=== PATIENT | female | born 1955 | race Caucasian/White ===

== ENCOUNTER 2017-01-08 15:56 | Emergency (ER) | payer OTHER ==
[~2017-01-08] VITALS: Ht 152.4 cm; Wt 77.6 kg
--- NOTE | 2017-01-08 17:17 | RAD ---
EXAM: CT head without contrast HISTORY: PAIN BEHIND LEFT EAR X 11 DAYS. H/O PSEUDOTUMOR AT AGE 22. COMPARISON: None. TECHNIQUE: Computed tomographic images of the head were obtained without contrast. RS compliance statement: One or more of the following individualized dose reduction techniques were utilized for this examination: 1. Automated exposure control 2. Adjustment of the mA and/or kV according to patient size 3. Use of iterative reconstruction technique FINDINGS: There is no acute intracranial process identified. Specifically, there are no intracranial blood products, extra-axial fluid collections, mass effect or midline shift. Ventricles and basilar cisterns are maintained. The visualized portions of the orbits, paranasal sinuses and mastoid air cells are unremarkable. No suspicious calvarial lesion is seen. IMPRESSION: No acute intracranial findings. Electronically signed by: Tricia Mcpherson MD (01/08/2017 5:14 PM) [facility]
[2017-01-08 18:45] VITALS: BP 154/67
[2017-01-08] MEDS ORDERED: MELO7.5T5 PO (18:50)
[2017-01-08] MEDS ORDERED: TIZA4TAB PO (18:50)
--- NOTE | 2017-01-08 18:51 | PHYS DOC ---
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 Patient states that it seemed to start as a soreness in the left neck muscle, she indicates the left trapezius muscle. She thought she had an neck muscle soreness or strain. Then the pain has gone into the area behind her left ear. She describes it not so much as a headache but a head pain. Over this time, she has tried taking Excedrin, ibuprofen, and has taken a Percocet once or twice. Each time, these pain relievers improve the pain but then it comes back. She's also tried cyclobenzaprine 5 mg 3 times a day without relief. She also takes trazodone at night which she has continued. About 4 days ago she had some nausea and one episode of vomiting but that has not persisted. 2 days ago she felt that her vision was a little blurred in both eyes and she was a little dizzy. That may have been a medication side effect. Patient tells me that at the age of 22, she had pseudotumor cerebri. The headache she is having now is nowhere near that type of headache. She was in a study at the [facility], she had 6 spinal taps and was on Bumex for a while, apparently it went away, and she states since her pseudotumor resolved, "I've only ever had 2 headaches", today's complaint of 11 days of pain behind the left ear is nothing like the complaint that she had with that problem. Patient denies fever or chills. She has not had a stiff neck but just had pain on the left side of her neck over her left trapezius. She also notes that about 6 months ago she had left rotator cuff surgery and she has a bone protruding on the top of her left shoulder and that has been hurting, she had some physical therapy for that, she wonders if it may have all started related to that shoulder surgery and bone. Review of Systems Review of Systems Constitutional: Denies fever or chills [] Eyes: As in history of present illness, she had some blurred vision in both eyes on Sunday that sounds more like a dizziness type of symptom, currently her vision is normal. HENT: Denies nasal congestion or sore throat [] Respiratory: Denies cough or shortness of breath [] GI: As in history of present illness Musculoskeletal: Denies back pain or joint pain [] Integument: Denies rash or skin lesions [] Neurologic: As in history of present illness Allergies Allergies Allergies Coded Allergies Type Severity Reaction Last Updated Verified psyllium Allergy Severe Anaphylaxis 01/08/17 Yes fexofenadine Allergy Intermediate Hives 01/08/17 Yes hydrocodone Allergy Intermediate Rash 01/08/17 Yes Physical Exam Physical Exam Constitutional: Well developed, well nourished, no acute distress, non-toxic appearance. Alert, mentating normally, ambulatory HENT: Normocephalic, atraumatic, bilateral external ears normal, oropharynx moist, no oral exudates, dentition intact and normal in appearance, oral examination normal, Nose normal. Left ear externally normal, EAC normal, TMs normal. Behind the left ear there is tenderness to palpation but no mass, no lymphadenopathy, no overlying skin color change or skin abnormality. Tenderness to palpation over the occipital insertion of the trapezius, no visible or palpable abnormality or mass. Eyes: PERRLA, EOMI, conjunctiva normal, no discharge. funduscopic exam appears normal with normal disks bilaterally. Neck: Normal range of motion, no tenderness, supple, no stridor. No cervical muscle spasm or abnormality. Cardiovascular:Heart rate regular rhythm, no murmur [] Lungs & Thorax: Bilateral breath sounds clear to auscultation [] Skin: Warm, dry, no erythema, no rash. [] Extremities: No tenderness, no cyanosis, no clubbing, ROM intact, no edema. [] Neurologic: Alert and oriented X 3, normal motor function, normal sensory function, no focal deficits noted. [] Current Patient Data Vital Signs Vital Signs Date Time Temp Pulse Resp B/P (MAP) Pulse Ox O2 Delivery O2 Flow Rate FiO2 01/08/17 18:45 52 19 154/67 (96) 98 Room Air 01/08/17 16:21 97.9 97.9 EKG EKG [] Radiology/Procedures Radiology/Procedures CT of the head read by the radiologist. No acute findings. [] Course & Med Decision Making Course & Med Decision Making Pertinent Labs and Imaging studies reviewed. 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 The pain was not under clap in onset and has had no associated fever or chills or actual neck stiffness. I don't believe the patient has a subarachnoid hemorrhage and I don't believe she has meningitis. I have not found any reason to suspect a serious etiology of the pain. I discussed the case with Dr. Bowie, neurology on-call, who agrees with the above and he suggested a trial of a stronger anti-inflammatory such as Mobitz and a centrally acting muscle relaxer such as ties and edema. I discussed these with the patient and prescribed them. Patient is comfortable with the plan. She does have a primary care doctor for follow-up. See instructions for plan. [] Dragon Disclaimer Dragon Disclaimer This electronic medical record was generated, in whole or in part, using a voice recognition dictation system. Departure Departure Impression: Primary Impression: Pain in the head Additional Impression: Cervical muscle pain Disposition: 01 HOME, SELF-CARE Condition: STABLE Referrals: TAYLOR ANDINO MD (PCP) Additional Instructions: As we discussed, CT scan did not show any cause of your pain, which is reassuring. It sounds like your pain may be from neck muscle pain, where it inserts into the base of your skull. I discussed your case with Dr. Bowie, our neurologist, who recommended a trial of a stronger anti-inflammatory and a different muscle relaxer. I have ordered both of these for you. Also, follow-up with your primary care physician for possible referral to physical therapy. Scripts Tizanidine Hcl (TIZANIDINE HCL) 4 Mg Tablet 1 TAB PO TID for head/neck muscle pain, #30 TAB Prov: MICHEL OLIVA MD 01/08/17 Meloxicam (MOBIC) 7.5 Mg Tablet 1 TAB PO DAILY for head/neck pain, #30 TAB Prov: MICHEL OLIVA MD 01/08/17 Problem Qualifiers MICHEL OLIVA MD Jan 08, 2017 18:51
== END 2017-01-08 18:58 | disposition home or self-care (01) ==
LOC: ER 15:56
DX: R51 Headache (principal); M62.838 Other muscle spasm; M54.2 Cervicalgia; M25.512 Pain in left shoulder; H92.02 Otalgia, left ear; E03.9 Hypothyroidism, unspecified; I10 Essential (primary) hypertension; M19.90 Unspecified osteoarthritis, unspecified site; Z88.5 Allergy status to narcotic agent; Z88.8 Allergy status to other drugs, medicaments and biological substances
CPT/HCPCS: 70450; 99284-25

== ENCOUNTER → 2017-04-09 | Outpatient (CLI) | payer OTHER ==
[~2017-04-09] MED LIST: BUPR300T4 PO; CARV12.52 PO; DOCU-109 PO; GLUC1CAP41 PO; IBUP-1060 PO; LEVO75TA PO; MELO7.5T5 PO; MULT1TAB52 PO; TAMS0.4C2 PO; TIZA4TAB PO; TRAZ50TA15 PO
[2017-04-09 09:20] LABS: BASO # 0.1 x10^3/uL (0.0-0.2); BASO % 2 % (0-3); EOS % 12 % (0-3); HEMATOCRIT 40.8 % (36.0-47.0); HEMOGLOBIN 13.7 g/dL (12.0-15.5); LYMPH # 1.1 x10^3/uL (1.0-4.8); LYMPH % 23 % (24-48); MEAN CORPUSCULAR HEMOGLOBIN 31 pg (25-35); MEAN CORPUSCULAR HGB CONC 34 g/dL (31-37); MEAN CORPUSCULAR VOLUME 91 fL (79-100); MONO % 6 % (0-9); NEUT % 57 % (31-73); PLATELET COUNT 204 x10^3/uL (140-400); RED BLOOD COUNT 4.47 x10^6/uL (3.50-5.40); RED CELL DISTRIBUTION WIDTH 13.9 % (11.5-14.5); WHITE BLOOD COUNT 4.7 x10^3/uL (4.0-11.0)
[2017-04-09 09:23] LABS: BILIRUBIN,URINE NEGATIVE (NEG); GLUCOSE,URINE NEGATIVE (NEG); NITRITE,URINE NEGATIVE (NEG); PROTEIN,URINE NEGATIVE (NEG-TRACE); UROBILINOGEN,URINE 0.2 mg/dL (0.2 mg/dL)
[2017-04-09 09:35] LABS: INR 1.1 (0.8-1.1); PROTHROMBIN TIME PATIENT 13.1 SEC (11.7-14.0)
[2017-04-09 09:45] LABS: ALBUMIN 3.4 g/dL (3.4-5.0); CREATININE 0.9 mg/dL (0.6-1.0); GFR 63.9; POTASSIUM 4.1 mmol/L (3.5-5.1)
[2017-04-09 09:45] LABS: BACTERIA,URINE 0 /HPF (0-FEW); RBC,URINE 0 /HPF (0-2); WBC,URINE OCC /HPF (0-4)
--- NOTE | 2017-04-09 12:20 | EKG ---
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
--- NOTE | 2017-04-09 13:22 | RAD ---
EXAM: Chest 2 views. HISTORY: Preoperative risk factors. COMPARISON: 10/14/2009. FINDINGS: Frontal and lateral views of the chest are obtained. There are no confluent infiltrates. There is no pneumothorax or pleural effusion. The heart is not enlarged. There are atherosclerotic calcifications of the aorta. There are changes of right rotator cuff repair. IMPRESSION: 1. No confluent infiltrates.
== END | disposition home or self-care (01) ==
LOC: SURGPAT 12:54
PROVIDERS: ATTEND Orthopaedic Surgery
DX: Z01.818 Encounter for other preprocedural examination (principal); M17.0 Bilateral primary osteoarthritis of knee; I70.0 Atherosclerosis of aorta; R00.1 Bradycardia, unspecified; Z96.653 Presence of artificial knee joint, bilateral
CPT/HCPCS: 36415; 71020; 80048; 81001; 82040; 82306; 85025; 85610; 85651; 85730; 87641; 93005

== ENCOUNTER → 2017-07-03 | Day surgery (SDC) | payer OTHER ==
[~2017-07-03] MED LIST changes: -BUPR300T4 PO; -CARV12.52 PO; +DEXAMETHASONE SOD PHOS 20 MG/5 ML VIAL.; -DOCU-109 PO; -GLUC1CAP41 PO; -IBUP-1060 PO; +KETOROLAC 30 MG, ROPIVacaine 0.5% PF 60 ML, EPINEPHrine 0.5 MG in IV NORMAL SALINE 100M... INT ART; -LEVO75TA PO; +LIDOCAINE 1% PF 2 ML VIAL. ID; +LIDOCAINE 1% PF 5 ML VIAL.; -MELO7.5T5 PO; -MULT1TAB52 PO; +ONDANSETRON PF 4 MG/2 ML VIAL.; +ONDANSETRON PF 4 MG/2 ML VIAL. IV; +PROCHLORPERAZINE 10 MG/2 ML VIAL. IV; +PROPOFOL 20 ML IV; +SEVOFLURANE 31 TO 60 MINUTES. IH; -TAMS0.4C2 PO; -TIZA4TAB PO; -TRAZ50TA15 PO; +fentaNYL PF VIAL 100 MCG/2 ML VIAL; +fentaNYL PF VIAL 100 MCG/2 ML VIAL IV
[2017-07-03] MEDS: IV RINGERS,LACTATED 1000ML 1,000 ML IV ×2 (10:52)
[2017-07-03] MEDS: SCOPOLAMINE 1.5MG PATCH. TD ×2 (10:56)
[2017-07-03] MEDS: BUPIVACAINE-EPI 0.25%-1:200000 50 ML VIAL. ×2 (13:39)
[2017-07-03] MEDS: fentaNYL PF VIAL 100 MCG/2 ML VIAL IV ×4 (14:36→14:42)
[2017-07-03] MEDS: oxyCODONE/APAP 5/325 1 TAB TABLET PO ×2 (15:06)
== END | disposition home or self-care (01) ==
LOC: OPSVCIP 10:27 → SURG 10:27
DX: T81.30XA Disruption of wound, unspecified, initial encounter (principal); Y84.8 Other medical procedures as the cause of abnormal reaction of the patient, or of later complication, without mention of misadventure at the time of the procedure; Y92.89 Other specified places as the place of occurrence of the external cause; K21.9 Gastro-esophageal reflux disease without esophagitis; M19.90 Unspecified osteoarthritis, unspecified site; F32.9 Major depressive disorder, single episode, unspecified; F17.200 Nicotine dependence, unspecified, uncomplicated; E03.9 Hypothyroidism, unspecified; Z96.653 Presence of artificial knee joint, bilateral; Z86.69 Personal history of other diseases of the nervous system and sense organs; Z88.1 Allergy status to other antibiotic agents; Z88.8 Allergy status to other drugs, medicaments and biological substances; Z87.39 Personal history of other diseases of the musculoskeletal system and connective tissue; Z86.39 Personal history of other endocrine, nutritional and metabolic disease; Z72.89 Other problems related to lifestyle
CPT/HCPCS: 13160; 87071; 87075; 87102; 87116; 87205; J0171; J0690; J1100; J1885; J2405; J2704; J2795; J3010; J7030; J7120

== ENCOUNTER → 2019-11-24 | Outpatient (CLI) | payer OTHER ==
[2018-06-27 08:39] VITALS: BP 132/67
[~2019-11-24] MED LIST changes: +ASPI325T11 PO; +ASPI81TA50 PO; +BUPR300T92 PO; +CARV12.511 PO; +CEPH-264 PO; +CONTRAST GIVEN. MC PRN; -DEXAMETHASONE SOD PHOS 20 MG/5 ML VIAL.; +DOCU-109 PO; +GLUC1CAP41 PO; +IBUP-1060 PO; +IOHEXOL 240 MG/ML 50ML VIAL. PO ONE; +IOHEXOL 300 MG/ML 100ML VIAL. IV ONE; -KETOROLAC 30 MG, ROPIVacaine 0.5% PF 60 ML, EPINEPHrine 0.5 MG in IV NORMAL SALINE 100M... INT ART; +LEVO125T PO; +LEVO75TA90 PO; -LIDOCAINE 1% PF 2 ML VIAL. ID; -LIDOCAINE 1% PF 5 ML VIAL.; +MELO7.5T5 PO; +MULT-445 PO; -ONDANSETRON PF 4 MG/2 ML VIAL.; -ONDANSETRON PF 4 MG/2 ML VIAL. IV; +OXYC1TAB19 PO; -PROCHLORPERAZINE 10 MG/2 ML VIAL. IV; -PROPOFOL 20 ML IV; -SEVOFLURANE 31 TO 60 MINUTES. IH; +TAMS0.4C2 PO; +TIZA4TAB2 PO; +TOLT4CAP PO; +TRAZ-118 PO; -fentaNYL PF VIAL 100 MCG/2 ML VIAL; -fentaNYL PF VIAL 100 MCG/2 ML VIAL IV
--- NOTE | 2019-11-24 09:27 | RAD ---
CT abdomen and pelvis with contrast History: Ventral hernia Technique: After the administration of intravenous contrast, CT imaging was performed of the abdomen and pelvis. Oral contrast was also given. Multiplanar images are reviewed. Exposure: One or more of the following individualized dose reduction techniques were utilized for this examination: 1. Automated exposure control 2. Adjustment of the mA and/or kV according to patient size 3. Use of iterative reconstruction technique. Comparison: None Findings: There is some linear atelectasis or fibrotic change of the left lower lobe near the base. No focal abnormality is identified of the liver, spleen, or pancreas. Gallbladder is present without obvious intraluminal abnormality by CT. Both kidneys enhance, no hydronephrosis. There is no adrenal nodularity. There is scattered mild calcified plaque of the normal caliber abdominal aorta. There is no bowel containing hernia. Bowel is not dilated. There is no intra-abdominal or intrapelvic free fluid. There is no free air. There is some scattered retained stool in the colon. There is advanced degenerative disc disease at L5-S1. There is multilevel lumbar facet degenerative change. There is large fluid collection with internal density measurements about 12 Hounsfield units located superficial to the fascia in the soft tissues of the abdomen and pelvis more eccentric to the left. This measures about 24 cm transverse by 3.9 cm AP by about 15.7 cm CC. This is associated with some variable very thin enhancement of the jones. Impression: 1. There is a large fluid collection with internal density measurements suggestive of simple fluid located superficial to the fascia in the abdomen and pelvis more eccentric to the left. While sterility is uncertain, there is only very minimal variable thin enhancement of the jones, overall features suggestive of a large seroma. No bowel containing hernia is identified. Electronically signed by: Rene Pittman MD (11/24/2019 9:24 AM) [id number]
== END | disposition home or self-care (01) ==
LOC: CT 07:19
PROVIDERS: ATTEND Family Medicine
DX: K43.9 Ventral hernia without obstruction or gangrene (principal); I70.0 Atherosclerosis of aorta; M51.37 Other intervertebral disc degeneration, lumbosacral region; M47.896 Other spondylosis, lumbar region
CPT/HCPCS: 74177; Q9966; Q9967